=== PATIENT | female | born 1945 ===

== ENCOUNTER 2017-10-29 06:53 | Day surgery (SDC) | payer MEDICARE, MEDICAID ==
[2017-10-28 11:28] VITALS: BMI 35.9
[2017-10-29] MEDS ORDERED: Propofol 10 mg/ml Inj (20 ML) ONE (09:38)
[2017-10-29] MEDS ORDERED: Albuterol HFA 90 mcg/actuation (8 g) ONE (09:41)
--- NOTE | 2017-10-29 09:41 | CP.SDSHP ---
Same Day Surgery H & P - History Proposed Procedure: colonoscopy Pre-Op Diagnosis: polyp surveillance - Previous Medical/Surgical History Cardiac: Hypertension Pulmonary: Asthma Previous Surgical History: gastric bypass, , tubal ligation - Allergies Allergies: Allergies latex Allergy (Verified 10/28/17 11:27) RASH Penicillins Allergy (Verified 10/28/17 11:27) RASH - Current Medications Current Medications: reviewed, per reconciliation - Physical Exam General Appearance: wdwn nad Vital Signs: Vital Signs 10/29/17 07:16 Temperature 97.5 F L Pulse Rate 67 Respiratory 19 Rate Blood Pressure 143/98 H O2 Sat by Pulse 97 Oximetry Mental Status: Alert & Oriented x3 Heart: WNL Lungs: WNL GI: WNL - {Optional Preform as Required} Abdomen: WNL - Impression Impression: history of colon polyps Pt. Evaluated Today:Candidate for Anesthesia & Procedure: Yes - Date & Time Date: 10/29/17 Time: 09:41 Short Stay Discharge - Short Stay Discharge Admitting Diagnosis/Reason for Visit: COLONIC POLYPS Disposition: HOME/ ROUTINE
[2017-10-29 10:53] VITALS: TEMP 97.8
[2017-10-29 10:55] VITALS: RESP 18
[2017-10-29 11:01] VITALS: BP 140/70; PULSE 75; O2SAT 99
== END 2017-10-29 11:00 | disposition home or self-care (01) ==
LOC: C.ENDO 06:53
PROVIDERS: ATTEND Internal Medicine Gastroenterology
DX: D12.2 Benign neoplasm of ascending colon (principal); K63.5 Polyp of colon; K57.90 Diverticulosis of intestine, part unspecified, without perforation or abscess without bleeding; K64.8 Other hemorrhoids
CPT/HCPCS: 45380; 88305; J2704

== ENCOUNTER 2017-12-02 23:14 | Emergency (ER) | payer MEDICARE, MEDICAID ==
[2017-12-02 23:14] VITALS: BMI 35.9
[2017-12-02 23:28] VITALS: BP 160/92; TEMP 99.4
[2017-12-02] MEDS ORDERED: Pantoprazole 80 MG in Sodium Chloride 0.9% 100 ML IV STA (23:39)
--- NOTE | 2017-12-02 23:39 | C.PDOC ---
History Of Present Illness 72 y/o female presents to the ED complaining of multiple episodes of bright red blood per rectum since this morning. Patient reports having 4 episodes today. Denies rectal pain. At first, there were only a few drops of blood in the toilet , but symptoms have gradually progressed throughout the day. Patient notes the last bowel movement, occurring just prior to arrival, appeared to fill the toilet with blood. She denies any nausea, vomiting, chest pain, palpitations, SOB, dizziness, or weakness. Time Seen by Provider: 12/02/17 23:38 Chief Complaint (Nursing): GI Problem History Per: Patient History/Exam Limitations: no limitations Onset/Duration Of Symptoms: Hrs Current Symptoms Are (Timing): Still Present Severity: None Pain Scale Rating Of: 0 Radiation Of Pain To:: None Associated Symptoms: denies: Fever, Chills, Nausea, Vomiting Alleviating Factors: None Last Bowel Movement: Today Recent travel outside of the [place]: No Additional History Per: Family Abnormal Vaginal Bleeding: No Past Medical History Reviewed: Historical Data, Nursing Documentation, Vital Signs Vital Signs: Last Vital Signs Temp 99.4 F 12/02/17 23:17 Pulse 78 12/02/17 23:59 Resp 18 12/02/17 23:17 BP 160/92 H 12/02/17 23:17 Pulse Ox 97 12/03/17 00:04 - Medical History PMH: Arthritis, Asthma (never been hospitalized), Colonic Polyps (2014), Diabetes (pre-diabetic), Gastritis, HTN, Hypercholesterolemia (NO MEDICATION), Migraine, Sleep Apnea (CPAP BUT STOPPED USING 2010) Denies: Fractures, Chronic Kidney Disease Surgical History: Endoscopy Denies: Pacemaker - [facility] Procedures ENDOSC POLYPECTOMY OF LG INTEST (09/21/14) LAPAROSCOP LYSIS-PERITONEAL ADHES (02/28/14) LAPAROSCOPIC GASTROPLASTY (01/17/14) LAPAROSCOPIC REMOVAL OF GASTRIC RESTRICTIVE DEVICE(S) (01/17/14) LAPAROSCOPIC ROBOTIC ASSISTED PROCEDURE (02/28/14) LAPAROSCOPIC VERTICAL (SLEEVE) GASTRECTOMY (02/28/14) OTHER ENDOSCOPY OF SM INTEST (01/17/14) OTHER GASTROSCOPY (02/28/14) Family History: States: No Known Family Hx - Social History Hx Tobacco Use: No Hx Alcohol Use: No Hx Substance Use: No - Immunization History Hx Tetanus Toxoid Vaccination: Yes Hx Influenza Vaccination: Yes Hx Pneumococcal Vaccination: Yes Review Of Systems Constitutional: Negative for: Fever, Chills Cardiovascular: Negative for: Chest Pain, Palpitations Respiratory: Negative for: Shortness of Breath Gastrointestinal: Positive for: Other (Bright red blood per rectum). Negative for: Nausea, Vomiting, Abdominal Pain, Rectal Pain Neurological: Negative for: Weakness, Numbness, Dizziness Physical Exam - Physical Exam Appears: Non-toxic, No Acute Distress Skin: Warm, Dry Head: Normacephalic Eye(s): bilateral: Normal Inspection Oral Mucosa: Moist Neck: Trachea Midline, Supple Chest: Symmetrical Cardiovascular: Rhythm Regular Respiratory: No Rales, No Rhonchi, No Wheezing Gastrointestinal/Abdominal: Bowel Sounds (good), Soft, No Tenderness, No Distention, No Guarding Rectal: Normal Exam, No Hemorrhoids (or evidence of rectal tear), Other (Bright red blood in the rectal vault) Back: Normal Inspection Extremity: Normal ROM Extremity: Bilateral: Atraumatic, Normal Color And Temperature, Normal ROM Pulses: Left Dorsalis Pedis: Normal, Right Dorsalis Pedis: Normal Neurological/Psych: Oriented x3 Gait: Steady ED Course And Treatment - Laboratory Results Result Diagrams: 12/02/17 23:48 12/02/17 23:48 O2 Sat by Pulse Oximetry: 97 (RA) Pulse Ox Interpretation: Normal Progress Note: Labs ordered. EKG obtained. Patient given Protonix IV. as per daughter, pt will see dr obando(gi ) in am. Against Medical Advice - AMA Patient Left Against Medical Advice: The patient declines admission to the hospital and wishes to leave the Emergency Department. This action is against my medical advice. This decision was made with informed refusal. The patient was told that admission to the hospital is necessary. Explanation of the reasons why were discussed. The risks of leaving were explained to the patient and include, but are not limited to, worsening of known or currently unknown conditions, permanent disability and from undiagnosed or untreated conditions. The patient has the capacity to make this informed decision and understands my explanation of the current medical problem and risks of leaving. The patient voluntarily accepts these risks and signed an AMA form documenting our conversation. The patient was given the opportunity to ask questions and reconsider. The patient was encouraged to return to the Emergency Department at any time for further care. Disposition Counseled Patient/Family Regarding: Studies Performed, Diagnosis, Need For Followup, Rx Given - Disposition Referrals: aJne Hernadez MD [Staff Provider] - Fabio Obando MD [Staff Provider] - Disposition: AGAINST MEDICAL ADVICE Disposition Time: 23:38 Condition: FAIR Prescriptions: Pantoprazole Sodium [Protonix] 40 mg PO DAILY #15 ect Instructions: Gastrointestinal Bleeding (DC) Forms: EATON (Syriac) Print Language: SERBIAN - Clinical Impression Clinical Impression: Lower GI bleed - Scribe Statement The provider has reviewed the documentation as recorded by the Scribe (Felicia Lane) Provider Attestation: All medical record entries made by the Scribe were at my direction and personally dictated by me. I have reviewed the chart and agree that the record accurately reflects my personal performance of the history, physical exam, medical decision making, and the department course for this patient. I have also personally directed, reviewed, and agree with the discharge instructions and disposition.
[2017-12-02 23:53] LABS: BASO # 0.1 K/uL (0.0-0.2); BASO % 1.3 % (0.0-2.0); EOS # 0.1 K/uL (0.0-0.7); EOS % 1.1 % (0.0-4.0); HEMOGLOBIN 12.4 g/dL (11.0-16.0); LYMPH # 2.5 K/uL (1.0-4.3); LYMPH % 33.7 % (20.0-40.0); MEAN CORPUSCULAR HEMOGLOBIN 31.8 pg (27.0-31.0); MEAN CORPUSCULAR HGB CONC 34.3 g/dL (33.0-37.0); MEAN PLATELET VOLUME 7.7 fL (7.2-11.7); MONO # 0.8 K/uL (0.0-0.8); MONO % 11.3 % (0.0-10.0); NEUT # 3.9 K/uL (1.8-7.0); NEUT % 52.6 % (50.0-75.0); NRBC % 0.1 % (0.0-2.0); RBC 3.9 Mil/uL (3.80-5.20); RED CELL DISTRIBUTION WIDTH 14.2 % (11.5-14.5); WHITE BLOOD COUNT 7.3 K/uL (4.8-10.8)
[2017-12-02 23:55] LABS: MEAN CELL VOLUME 92.7 fL (81.0-99.0)
[2017-12-03] LABS: PROTHROMBIN TIME 11.1 SECONDS (9.7-12.2)
[2017-12-03 00:04] LABS: ALB/GLOB RATIO 1.3 (1.0-2.1); ALBUMIN 4.2 g/dL (3.5-5.0); CALCIUM 9.9 mg/dl (8.6-10.4); GFR NON-AFRICAN AMERICAN > 60; LIPASE 104 U/L (23-300)
[2017-12-03 00:11] LABS: ALT/SGPT 10 U/L (9-52); AST/SGOT 29 U/L (14-36); BLOOD UREA NITROGEN 17 mg/dL (7-17)
[2017-12-03 01:47] VITALS: PULSE 87; RESP 16; O2SAT 99
== END 2017-12-03 01:46 | disposition left against medical advice (07) ==
LOC: C.ER 23:14
DX: K92.2 Gastrointestinal hemorrhage, unspecified (principal); E78.00 Pure hypercholesterolemia, unspecified; I10 Essential (primary) hypertension
CPT/HCPCS: 80053; 83690; 85025; 85610; 85730; 86850; 86900; 96374; 99283; C9113; G0328

== ENCOUNTER 2018-07-08 08:55 | Outpatient (CLI) | payer MEDICARE, MEDICAID | END 2018-07-08 08:56 | disposition home or self-care (01) | LOC: C.USIC 08:56 | DX: R10.10 Upper abdominal pain, unspecified (principal) ==